=== PATIENT | male | born 1985 | race Caucasian/White ===

== ENCOUNTER 2018-11-28 10:35 | Emergency (ER) | payer SELFPAY ==
[2018-11-28 10:36] VITALS: BP 140/83; PULSE 87; RESP 19; TEMP 36.1; O2SAT 99; BMI 34.7
--- NOTE | 2018-11-28 10:40 | ED.VIS.UPPEX ---
History of Present Illness Chief Complaint: Upper Extremity Injury Informant: Patient Occurred: Days Mechanism/Context: - Onset: Days - No new injury Context: Sudden Onset Timing: Continuous Quality of Pain: Aching Location: Right shoulder not elbow Current Severity: Mild Maximum Severity: Severe Worsened by: Movement especially abduction Relieved by: Internally rotated and abducted Associated Symptoms: Loss of Funtion - Secondary to pain. Negative for: Parasthesia, Weakness Narrative: Patient is a 33-year-old [id number] male who fell off a ladder 3 months ago. He states it hurt for about a week. He presents now with chief complaint of right shoulder pain not right elbow pain as documented by triage. He denies paresthesia, anesthesia motor weakness. He denies neck pain. He denies new injury. He denies cardiac or respiratory symptoms. Movement exacerbates his pain. He describes a dull aching pain. Prior similar symptoms: No Recent Illness/Hospitalization: No - Past Medical History (1) No significant past medical history Status: Acute Past Medical History - Allergies and Home Meds Allergies/Adverse Reactions: Allergies propoxyphene napsylate [From Darvocet-N 100] Allergy (Verified 05/08/14 15:23) Rash Primary Care Physician: Bharathi Gilbert Jr., MD [Primary Care Provider] - Prior records reviewed: Yes Past Medical History: None Surgical History: no surgical history Lives: Alone Smoking Status: Never smoker Alcohol: Rare Drugs: None Review of Systems General: Denies: Chills, Fever, Malaise, Subjective, Sweats Cardiovascular: Denies: Chest pain, Palpitations, Heart racing, -, - Respiratory: Denies: Dyspnea, Cough, Dyspnea on exertion Gastrointestinal: Denies: Nausea, Vomiting Musculoskeletal: Reports: Extremity Pain - Right shoulder. Denies: Myalgias, Arthralgias, Neck pain, Back pain, Swelling Skin: Denies: Rash, Abscess, Abrasions, Wounds, -, - Neurological: Denies: Weakness, Parasthesia, Numbness Hematologic: Denies: Easy bruising, Easy bleeding Physical Exam Vital Signs/Narrative: Vital Signs Temp Pulse Resp BP Pulse Ox 11/28/18 10:36 96.9 F L 87 19 H 140/83 H 99 Inital Vital Signs reviewed: Yes Right Shoulder: Limited ROM - Patient is reluctant to AB duct his right shoulder past 60 degrees. Passive abduction past 90 degrees causes significant discomfort. There is pain to palpation over the AC joint. There is no crepitus. There is no laxity.. Negative for: Abrasion, Contusion, Deformity, Edema, Hematoma, - Right Humerus: Negative for: Abrasion, Contusion, Deformity, Edema, Hematoma, Limited ROM, - Right Elbow: Negative for: Abrasion, Contusion, Deformity, Edema, Hematoma, Limited ROM, - - No pain the patient over the lateral medial epicondyle. Is no pain the patient of the radial head. Is no pain the patient over the olecranon process. He has full active range of motion without pain. Right Forearm: Negative for: Abrasion, Contusion, Deformity, Edema, Hematoma, Limited ROM, - Right Wrist: Negative for: Abrasion, Contusion, Deformity, Edema, Hematoma, Limited ROM, - Right Hand: Negative for: Abrasion, Contusion, Deformity, Edema, Hematoma, Limited ROM, - Left Finger: Negative for: Abrasion, Contusion, Deformity, Edema, Hematoma, Limited ROM, - General: Well nourished, Well developed, Obese Head: Normocephalic, Atraumatic Eyes: Perrl, EOMI. Negative for: Pale conjunctiva, Scleral icterus, - ENT: No Trauma, Moist Mucous Membranes Neck: Nontender, Full ROM. Negative for: Spinal Tenderness, Paraspinal Tenderness Cardiovascular: Regular rate, Regular rhythm, No murmurs, Normal S1, Normal S2 Respiratory: No distress, CTA bilaterally, Chest nontender Back: Nontender Skin: Normal color, No rash, No Trauma. Negative for: Cyanosis, Diaphoresis, Jaundice Neurological: Alert, Oriented x3, Cranial nerves II-XII grossly intact, Normal Strength, Normal Sensation, Normal DTR - Biceps, brachialis and triceps reflexes 1+ and symmetric., - - Axillary, median, radial and ulnar function intact. Psychological: Normal affect, Normal Mood Diagnostic/Tx/Re-eval Chest X-Ray - ED: Read by ED Physician, - - Three-view x-ray of the right shoulder was obtained of the right knee is negative. There is no fracture, subluxation or dislocation. AC joint looks normal. There is no calcification supraspinatus tendon. Partial lung is seen as normal. There is no foreign body noted in the soft tissue. - Medical Decision Making Concern patient has impingement syndrome. With history of trauma 3 months ago and no medical care will obtain x-ray to determine if there is fracture with nonunion or angulated because he did not seek medical care. Since there is no contraindication to NSAIDs he received 500 mg of Naprosyn. He states he drove himself to the emergency department. Informed of his results. He was treated with NSAIDs since there is no contraindication. ED Disposition - Plan for ED Patient: Disposition: Home or Assisted Living Diagnosis: Impingement syndrome of right shoulder Instructions: Shoulder Impingement Syndrome Prescriptions: Naproxen [Naprosyn] 500 mg PO BID #14 tab Prescription Printed Referrals: Bharathi Gilbert Jr., MD [Primary Care Provider] - 1 Week if not improving
[2018-11-28] MEDS: Naproxen 500 MG Tablet PO (10:45)
--- NOTE | 2018-11-28 10:48 | RAD_ITS ---
STUDY: X-RAY - RIGHT SHOULDER REASON FOR EXAM: Male, 33 years old. Shoulder pain. TECHNIQUE: 4 view(s) of the shoulder. COMPARISON: None. FINDINGS: Normal glenohumeral articulation. Normal acromioclavicular joint. Normal acromion. Normal humeral head and visualized proximal humerus. The soft tissue structures are unremarkable. Normal visualized pulmonary apex. RAD/Shoulder min 2 Views IMPRESSION: Normal x-ray examination of the shoulder. Electronically Signed: Hope Hamilton, at 11:18 EDT Tel , Service support ,
== END 2018-11-28 11:35 | disposition home or self-care (01) ==
PROVIDERS: Emergency Provider Emergency Medicine; Family Provider Internal Medicine; PCP Internal Medicine
DX: M75.41 Impingement syndrome of right shoulder (principal); W11.XXXA Fall on and from ladder, initial encounter; Y93.9 Activity, unspecified; Y92.9 Unspecified place or not applicable; E66.9 Obesity, unspecified
CPT/HCPCS: 73030; 99283

== ENCOUNTER 2021-05-03 13:08 | Outpatient (CLI) | payer MEDICAID, SELFPAY ==
[2021-05-03 13:18] VITALS: BP 124/84; PULSE 77; RESP 16; TEMP 36.7; O2SAT 98; BMI 35.4
[2021-05-03] MEDS: 0.9% Saline Lock 10 ML Syringe IV (13:21)
[2021-05-03 14:19] VITALS: BP 123/76; PULSE 69; RESP 16; TEMP 36.9; O2SAT 98
[2021-05-03 15:11] VITALS: BP 125/80; PULSE 67; RESP 16; TEMP 36.4; O2SAT 100
== END 2021-05-03 23:59 | disposition home or self-care (01) ==
LOC: MS3OUT 13:13 → MS3 13:14
PROVIDERS: PCP Internal Medicine; Referring Provider Nurse Practitioner Adult Health; Visit Provider Nurse Practitioner Adult Health
DX: Z23 Encounter for immunization (principal); U07.1 COVID-19
CPT/HCPCS: J7050; M0245; Q0245; A4216

== ENCOUNTER 2023-11-15 09:23 | Emergency (ER) | payer MEDICAID, SELFPAY ==
[2023-11-15 09:24] VITALS: BP 186/100; PULSE 73; RESP 24; TEMP 36.1; O2SAT 97
--- NOTE | 2023-11-15 09:33 | EKG12_ITS ---
Test Reason : CP Blood Pressure : / mmHG Vent. Rate : 076 BPM Atrial Rate : 076 BPM P-R Int : 148 ms QRS Dur : 090 ms QT Int : 392 ms P-R-T Axes : 039 -30 028 degrees QTc Int : 441 ms Normal sinus rhythm Left axis deviation Abnormal ECG Confirmed by Aditya Gomez ([id number]), school photograph editor NAYE HYDE ([id number]) on 11/16/2023 2:05:41 PM Referred By: Confirmed By:Aditya Gomez
[2023-11-15] MEDS: Aspirin 81 MG TAB.CHEW 324 MG PO (09:36)
[2023-11-15 09:38] VITALS: BMI 41.8
[2023-11-15 09:44] LABS: Absolute Neutrophil Count 5.4 X10^3/uL (2.0-7.7); Basophil# 0.11 X10^3/uL; Basophil% 1.2 % (0-1); Eosinophil# 0.33 X10^3/uL; Eosinophils% 3.6 % (0-5); Hematocrit 42.6 % (40-54); Hemoglobin 14.2 g/dL (13.0-16.5); Lymphocyte % 26.3 % (19-41); Mean Corp Hgb Conc 33.3 g/dL (32-36); Mean Corpuscular Hgb 29.8 pg (27.0-32.0); Mean Corpuscular Volume 89.5 fL (80-94); Mean Platelet Vol. 10.5 fl (6.2-12.0); Monocyte# 0.78 X10^3/uL; Monocyte% 8.5 % (0-10); NRBC Flagged by Analyzer 0 % (0-5); Neutrophil # 5.44 X10^3/uL (2.7-7.7); Neutrophil % 59.6 % (47-70); Platelet Count 292 K/mm3 (150-450); RBC Distribution Width SD 42.8 fl (35.1-43.9); Red Blood Count 4.76 M/mm3 (4.6-6.2); White Blood Count 9.1 K/mm3 (4.4-11.0)
--- NOTE | 2023-11-15 09:45 | ED.VIS.CHEST ---
HPI History of Present Illness Chief Complaint: Chest Pain Informant: patient Onset/Context/Timing Onset: Today Activity at onset: sudden Timing: Intermittent Quality: Positive for Sharp Location: Right Chest and Left Chest Current Severity: Mild Maximum Severity: Mild Worsened By: Nothing Relieved By: Nothing Associated Symptoms: Negative for Nausea, Vomiting, Diaphoresis, Dyspnea or Palpitations Narrative Narrative: 38-year-old male no stated past medical history other than pituitary surgeries and prior femoral rhianna for fracture. No cardiac history. He is not diabetic or hypertensive. States he was cutting grass this morning. He works for a [employer]. He was using a riding mower started getting tingling in both hands. Then sharp intermittent chest pain that went across to his chest. Denies any recent exertional dyspnea or exertional chest pain in the last month. No history of DVT or PE risk factors. He denies any hemoptysis. Nothing particular makes the pain better or worse or brings it on or changes it. Prior Similar Symptoms: No Recent Illness/Hospitalization: No CVD Risk Factors: Negative for Hypertension, Diabetes or Hypercholesterolemia PE Risk Factors: Negative for Recent Travel/Surgery, Recent Immobilization, Prior DVT or PE, Cancer or OCP + Smoking + >/=35 TAD Risk Factors: Negative for Marfan's Syndrome [facility] Medical History COVID-19 Chronic neck and back pain Home Medications ?Medication ?Instructions ?Recorded ?Last Taken ?Type levothyroxine 25 mcg tablet 25 mcg PO DAILY 05/03/21 Unknown History (Synthroid) dextroamphetamine-amphetamine ER PO 11/15/23 Unknown History 25 mg 24hr capsule,extend release Allergy/AdvReac Type Severity Reaction Status Date / Time propoxyphene napsylate (From Allergy Rash Verified 05/01/21 12:34 Darvocet-N 100) Surgical History History of ankle surgery History of brain surgery Social History Smoking Status: Never smoker ROS ROS ED ROS Narrative Denies recent illness. Constitutional Constitutional ED: Denies chills or fever(s) Eyes Eyes: Reports none ENT ENT ED: Denies ear pain Cardiovascular Cardiovascular: Reports as per HPI and chest pain; Denies palpitations or racing heartbeat Respiratory/Chest Respiratory/Chest: Denies cough, dyspnea or dyspnea on exertion Gastrointestinal Gastrointestinal: Denies abdominal pain or constipation Genitourinary Genitourinary ED: Denies dysuria or hematuria Musculoskeletal Musculoskeletal: Denies arthralgias Integumentary Denies abscess Neurologic Neurologic: Denies headache(s) Psychiatric Psychiatric: Denies anxiety Endocrine Endocrinology: Denies cold intolerance Hematologic/Lymphatic Hematologic/Lymphatic: Denies easy bleeding Allergic/Immunologic Allergic/Immunologic ED: Denies mouth swelling EXAM Physical Exam Narrative Exam Narrative: 38-year-old male no acute distress vital signs stable afebrile. Pulse ox 97% on room air no hypoxia. H EENT exam unremarkable. Neck nontender no JVD. Lungs clear to auscultation bilaterally. Heart regular rhythm rate about 75 no murmur. Chest wall and ribs nontender. No ecchymosis or bruising. No reproducible pain. Abdomen soft nontender. Moving all 4 extremities. Calves are nontender without edema or cords. Normal strength and range of motion. Equal symmetrical genetic counsellor strength. Equal symmetrical radial pulses. Back nontender. He is awake and alert. No focal motor deficits Const Vital Signs: 11/15/23 09:24 11/15/23 09:33 11/15/23 09:38 Temperature 97.0 F L Temperature Source Temporal Pulse Rate 73 Respiratory Rate 24 H Respiratory Effort Normal Blood Pressure 186/100 H Blood Pressure Mean 128 Pulse Ox 97 Oxygen Delivery Method Room Air 11/15/23 10:40 11/15/23 11:00 11/15/23 12:00 Temperature Temperature Source Pulse Rate 71 68 64 Respiratory Rate 17 12 15 Respiratory Effort Blood Pressure 167/117 H 163/109 H 135/100 H Blood Pressure Mean 133 126 113 Pulse Ox 95 99 Oxygen Delivery Method Room Air Positive well nourished and well developed; Negative for cachectic, contractures or unkempt General Appearance ED: well developed and NAD; Negative for unkempt, cachectic, contractures or pallor Nutritional Appearance: Negative for cachectic HEENT Reports moist mucous membranes; Denies dry mucous membranes normocephalic and atraumatic; Negative for trauma or tenderness Mouth ED: No dry mucous membranes Mouth: No dry mucous membranes Eyes PERRL and EOMs intact bilaterally General Eye ED: Negative for pale conjunctiva or scleral icterus Neck no lymphadenopathy, supple and no JVD General: Negative for tenderness Chest Wall inspection of chest normal and palpation of chest normal Chest: Negative for tenderness Resp normal respiratory effort and clear to auscultation bilaterally Effort and Inspection: Negative for respiratory distress Auscultation: Negative for rales, rhonchi, wheezes or diminished lung sounds Cardio regular rate, regular rhythm, S1 normal heart sound, S2 normal heart sound and no murmurs Rate: Negative for bradycardia or tachycardic Rhythm: Negative for abnormal rhythm Peripheral Pulses: pulses 2+ throughout GI normal to inspection, nondistended, normoactive bowel sounds, soft to palpation, non-tender, non-distended and no masses Back/Spine no CVA tenderness and no thoracic nor lumbar tenderness General Back: Negative for CVA tenderness Cervical Spine: Negative for cervical spine tenderness Extremity normal to inspection General Extremety ED: Negative for edema, pulses abnormal or tenderness General Extremity: Negative for edema or pulses abnormal Neuro oriented x3 and no sensory deficits noted Sensorium / Orientation: awake, alert, oriented to person, oriented to place and oriented to time; Negative for confused, lethargic or stuporous Motor Exam: strength 5/5 throughout Psych mental status grossly normal Appearance: Negative for unkempt Attitude: No agitated Mood & Affect: Negative for depressed, anxious or tearful Skin no rashes or lesions noted and no wounds General Skin Exam: Negative for jaundice or pallor Rashes: No rashes noted Trauma: Negative for abrasion, laceration or puncture Heart Score History: Slightly/Non-Suspicious ECG: Normal Age: </= 45 years Risk Factors: No Risk Factors Troponin: </= Normal Limit Score: 0 MDM MDM MDM Narrative Medical decision making narrative: 2-year-old male with atypical, nonreproducible chest discomfort. Does not sound cardiac. Is not exertional. He has has no history of DVT or PE risk factors. Normal physical exam. Undergo cardiac workup. If its negative after 2-hour troponin is uncomfortable for him to be discharged home. Repeat exam patient is doing well at 12:08 PM. We went over all his test results including his 2 normal troponin levels. He is [place] being discharged home with outpatient follow-up. History & Record Review Discussion w/independent historian: Patient Additional record(s) reviewed:: Prior inpatient record, Prior outpatient record, Prior ED visit and Prior labs Lab Data Attestation: I reviewed the patient's lab results. Lab results narrative: CBC normal. White count 9. H&H 14 and 42. Platelets 292. Electrolytes show potassium 3.2. Gap 4. Normal BUN and creatinine. Glucose 103. Initial troponin 7. Repeat 2-hour troponin 8. Labs: Laboratory Results - last 24 hr 11/15/23 11/15/23 09:30 11:41 WBC 9.1 RBC 4.76 Hgb 14.2 Hct 42.6 MCV 89.5 MCH 29.8 MCHC 33.3 RDW Std Deviation 42.8 RDW Coeff of Mina 13.0 Plt Count 292 MPV 10.5 Immature Gran % (Auto) 0.800 Neut % (Auto) 59.6 Lymph % (Auto) 26.3 [place] % (Auto) 8.5 Eos % (Auto) 3.6 Baso % (Auto) 1.2 H Absolute Neuts (auto) 5.4 Absolute Lymphs (auto) 2.40 Nucleated RBC % 0 Sodium 143 Potassium 3.2 L Chloride 108 H Carbon Dioxide 31.0 Anion Gap 4 L BUN 8 Creatinine 0.87 Estim Creat Clear Calc 149.90 Est GFR (MDRD) Af Amer 125 Est GFR (MDRD) Non-Af 103 BUN/Creatinine Ratio 9.2 L Glucose 103 Calcium 9.1 Troponin I High Sens 7 8 Radiography Chest X-Ray - ED: 1 View, Read by ED Physician, Read by Radiologist, Normal, Heart, Lungs, Mediastinum, Bony Structures and No Acute Disease Diagnostic Testing: Clinical Impression(s) from Imaging Studies Chest X-Ray 11/15/23 10:02 IMPRESSION: There is elevation of the right hemidiaphragm. The lungs are clear. Electronically Signed: Ayan Franco MD at 10:24 EDT , Chest x-ray, portable, single view interpreted both by myself and the radiologist shows no acute abnormality. Normal cardiac silhouette. Normal mediastinum. Normal lung clark. Rhythm Strip Rhythm Strip: Sinus Rhythm Rate: 76 Ectopy: None EKG Initial EKG: Attestation: I personally reviewed and interpreted this EKG as follows: Interpretation: Sinus Rhythm and No Acute Injury Pattern Comments: Normal sinus rhythm rate of 76 no acute signs of [place] or ischemia. Discharge Plan Triage Chief Complaint: Chest Pain ED Provider: Tommy Pearl Dx/Rx/DC Orders Clinical Impression: Chest pain Instructions: ED Chest Pain, Uncertain Cause Prescriptions: No Action levothyroxine [Synthroid] 25 mcg Tablet 25 mcg PO DAILY dextroamphetamine-amphetamine 25 mg capsule,extended release 24hr PO Patient Comments: take 1 capsule by mouth every morning Primary Care Provider: Bharathi Gilbert Jr. Referrals: Bharathi Gilbert Jr., MD [Primary Care Provider] - 3-5 Days Activity Restrictions/Additional Instructions: Your labs, EKG and chest x-ray were unremarkable. Motrin and Tylenol for pain. Follow-up with your doctor if not improving or return to emergency department if worse. Print Language: Latvian Disposition Disposition: Home, Self Care
[2023-11-15 09:59] LABS: Anion Gap 4 (5-15); BUN 8 mg/dL (7-18); BUN/Creat Ratio 9.2 RATIO (10-20); Calcium,Total 9.1 mg/dL (8.5-10.1); Chloride 108 mmol/L (98-107); Creatinine, Serum 0.87 mg/dL (0.70-1.30); EST Glomerular Filtration Rate 103 mL/min (>60); Est Glom Filt Rate - Afr Amer 125 mL/min (>60); Glucose 103 mg/dL (74-106); Potassium 3.2 mmol/L (3.5-5.1); Sodium Level 143 mmol/L (136-145); Troponin-I HS (w/2H Reflex) 7 pg/mL (3.0-78.0)
--- NOTE | 2023-11-15 10:02 | RAD_ITS ---
STUDY: X-RAY CHEST REASON FOR EXAM: Male, 38 years old. Chest pain TECHNIQUE: Single AP portable view of the chest. COMPARISON: None. FINDINGS: EKG electrodes are seen. There is elevation of the right hemidiaphragm. No acute infiltrate is seen. There is no demonstrated pleural abnormality. Normal size heart. Normal mediastinum and velma. Normal visualized pulmonary arteries. Normal visualized aortic arch and descending thoracic aorta. Normal visualized thoracic spine. Normal visualized ribs, clavicles, and shoulders. There is no demonstrated abnormality of the visualized soft tissue structures of the upper abdomen. RAD/Chest 1 View (Portable) IMPRESSION: There is elevation of the right hemidiaphragm. The lungs are clear. Electronically Signed: Ayan Franco MD at 10:24 EDT ,
[2023-11-15 10:40] VITALS: BP 167/117; PULSE 71; RESP 17; O2SAT 95
[2023-11-15 11:00] VITALS: BP 163/109; PULSE 68; RESP 12; O2SAT 99
[2023-11-15 11:37] LABS: Reflex Troponin-HS? (from REC) Y
[2023-11-15 12:00] VITALS: BP 135/100; PULSE 64; RESP 15
[2023-11-15 12:04] LABS: Troponin-I HS 8 pg/mL (3.0-78.0)
[2023-11-15 12:12] VITALS: BP 145/103; PULSE 70; RESP 19; TEMP 36.6; O2SAT 96
== END 2023-11-15 12:17 | disposition home or self-care (01) ==
PROVIDERS: Emergency Provider Emergency Medicine; PCP Internal Medicine; Visit Provider Emergency Medicine
DX: R07.9 Chest pain, unspecified (principal); R20.2 Paresthesia of skin; Z79.899 Other long term (current) drug therapy
CPT/HCPCS: 71045; 80048; 84484; 85025; 93005; 99284; A4216